=== PATIENT | female | born 1970 | race Caucasian/White ===

== ENCOUNTER 2016-12-16 16:51 | Emergency (ER) | payer OTHER ==
[2016-12-16 17:04] LABS: URINE BILIRUBIN NEGATIVE (NEGATIVE); URINE BLOOD 2+ (NEGATIVE); URINE KETONE NEGATIVE (NEGATIVE); URINE LEUKOCYTE ESTERASE 2+ (NEGATIVE); URINE NITRATE POSITIVE (NEGATIVE); URINE PROTEIN 2+ (NEGATIVE); UROBILINOGEN NORMAL mg/dL (<1.0)
[2016-12-16 17:18] LABS: URINE GLUCOSE (UA) 1000 mg/dL (NORMAL)
[2016-12-16 17:19] LABS: URINE BACTERIA 2+ (NONE SEEN); URINE RBC 0-5 /[HPF] (0-2); URINE SQUAMOUS EPITHELIAL CELL 0-10 /[HPF] (NONE SEEN); URINE WBC TNTC /[HPF] (0-5)
[2016-12-16 17:22] LABS: BASO % 0.2 % (0.1-1.2); EOS # 0.2 10_X3_uL (0.0-0.4); EOS % 1.7 % (0.7-5.8); GRAN # 6.8 10_X3_uL (1.6-6.1); GRAN % 65.4 % (34.0-71.1); HEMATOCRIT 42.4 % (34-45); HEMOGLOBIN 15.1 g/dL (11.2-15.7); LYMPH # 2.7 10_X3_uL (1.2-3.7); LYMPH % 25.5 % (19.3-51.7); MEAN CORPUSCULAR HEMOGLOBIN 30.4 pg (27.0-33.0); MEAN CORPUSCULAR HGB CONC 35.6 g/dL (32.0-36.0); MEAN CORPUSCULAR VOLUME 85.3 fL (79-95); MEAN PLATELET VOLUME 13.2 fl (7.5-11.5); MONO # 0.8 10_X3_uL (0.2-0.9); MONO % 7.2 % (4.7-12.5); PLATELET COUNT 215 x10_3/uL (182-369); RED BLOOD COUNT 4.97 x10_6/uL (3.9-5.2); RED CELL DISTRIBUTION WIDTH 11.8 % (11.7-14.4); WHITE BLOOD COUNT 10.4 x10_3/uL (4.0-10.0)
[2016-12-16 17:34] LABS: BLOOD UREA NITROGEN 21 mg/dL (7-18); CALCIUM 9.9 mg/dL (8.7-10.7); CARBON DIOXIDE 24 mmol/L (21-32); CREATININE 0.7 mg/dL (0.6-1.3); POTASSIUM 4.7 mmol/L (3.5-5.1); SODIUM 128 mmol/L (136-145)
[2016-12-16 17:45] LABS: GLUCOSE,RANDOM 460 mg/dL (70-99)
== END 2016-12-16 20:27 | disposition home or self-care (01) ==
LOC: ER 16:51
PROVIDERS: Emergency Medicine
DX: N30.80 Other cystitis without hematuria (principal); N12 Tubulo-interstitial nephritis, not specified as acute or chronic; E11.9 Type 2 diabetes mellitus without complications; I10 Essential (primary) hypertension; Z90.710 Acquired absence of both cervix and uterus; Z90.49 Acquired absence of other specified parts of digestive tract; F17.290 Nicotine dependence, other tobacco product, uncomplicated; Z91.041 Radiographic dye allergy status; Z88.5 Allergy status to narcotic agent; Z88.8 Allergy status to other drugs, medicaments and biological substances; Z88.1 Allergy status to other antibiotic agents; Z79.899 Other long term (current) drug therapy; Z79.84 Long term (current) use of oral hypoglycemic drugs
CPT/HCPCS: 36415; 80048; 81001; 82962; 85025; 87086; 87186; 96365; 99070; 99283-25